=== PATIENT | female | born 1955 | race Asian ===

== ENCOUNTER → 2016-09-17 | Outpatient (CLI) | payer MEDICAID ==
[2016-09-17 10:30] LABS: ABSOLUTE BASOPHILS # (AUTO) 0.1 10^3/uL (0.0-0.2); ABSOLUTE EOSINOPHILS # (AUTO) 0.5 10^3/uL (0.0-0.6); ABSOLUTE NEUT (AUTO) 6.2 10^3/uL (1.7-8.2); BASOPHILS % (AUTO) 1.1 % (0-2); EOSINOPHILS % (AUTO) 5.4 % (0-6); HEMATOCRIT 34.7 % (36.0-47.0); HEMOGLOBIN 11.2 g/dL (12.0-15.5); HGB HCT DIFFERENCE -1.1; LYMPHOCYTES % (AUTO) 19.9 % (13-45); MEAN CORPUSCULAR HEMOGLOBIN 27.1 pg (27.0-33.4); MEAN CORPUSCULAR HGB CONC 32.3 g/dL (32.0-36.0); MEAN CORPUSCULAR VOLUME 84 fl (80-97); MONOCYTES % (AUTO) 10.4 % (3-13); RED BLOOD COUNT 4.14 10^6/uL (3.72-5.28); SEGMENTED NEUTROPHILS % (AUTO) 63.2 % (42-78); WHITE BLOOD COUNT 9.8 10^3/uL (4.0-10.5)
[2016-09-17 10:37] LABS: APPEARANCE,URINE CLEAR; BILIRUBIN,URINE NEGATIVE (NEGATIVE); GLUCOSE, URINE NEGATIVE (NEGATIVE); KETONES,URINE NEGATIVE (NEGATIVE); LEUKOCYTE ESTERASE,URINE NEGATIVE (NEGATIVE); NITRITE,URINE NEGATIVE (NEGATIVE); PROTEIN,URINE NEGATIVE (NEGATIVE); URINE SPECIFIC GRAVITY 1.016; UROBILINOGEN,URINE NEGATIVE mg/dL (<2.0)
[2016-09-17 11:02] LABS: ANION GAP 12 (5-19); BLOOD UREA NITROGEN 16 mg/dL (7-20); CALCIUM 9.5 mg/dL (8.4-10.2); CARBON DIOXIDE 26 mmol/L (22-30); CHLORIDE 103 mmol/L (98-107); CREATININE RESULT 0.77 mg/dL (0.52-1.25); GLUCOSE 102 mg/dL (75-110); SODIUM 141.2 mmol/L (137-145)
--- NOTE | 2016-09-18 09:21 | EKG REPORT ---
SEVERITY:- NORMAL ECG - SINUS RHYTHM : Confirmed by: Dre Justice MD 18-Sep-2016 09:19:59
== END ==
LOC: OD 09:25
PROVIDERS: ATTEND Orthopaedic Surgery
DX: Z01.810 Encounter for preprocedural cardiovascular examination (principal); Z01.811 Encounter for preprocedural respiratory examination; Z01.818 Encounter for other preprocedural examination; Z79.899 Other long term (current) drug therapy; M17.11 Unilateral primary osteoarthritis, right knee
CPT/HCPCS: 36415; 71020; 80048; 81001; 85025; 93005; 93010

== ENCOUNTER 2016-10-19 05:45 | Inpatient (IN) | payer MEDICAID ==
[2016-10-08 12:41] LABS: HEMATOCRIT 35.8 % (36.0-47.0); HEMOGLOBIN 11.7 g/dL (12.0-15.5); HGB HCT DIFFERENCE -0.7; MEAN CORPUSCULAR HEMOGLOBIN 27.3 pg (27.0-33.4); MEAN CORPUSCULAR HGB CONC 32.7 g/dL (32.0-36.0); MEAN CORPUSCULAR VOLUME 84 fl (80-97); RED BLOOD COUNT 4.29 10^6/uL (3.72-5.28); RED CELL DISTRIBUTION WIDTH 16.1 % (11.5-14.0); WHITE BLOOD COUNT 9.3 10^3/uL (4.0-10.5)
[2016-10-08 12:47] LABS: APPEARANCE,URINE CLEAR; BILIRUBIN,URINE NEGATIVE (NEGATIVE); GLUCOSE, URINE NEGATIVE (NEGATIVE); KETONES,URINE NEGATIVE (NEGATIVE); LEUKOCYTE ESTERASE,URINE NEGATIVE (NEGATIVE); NITRITE,URINE NEGATIVE (NEGATIVE); PROTEIN,URINE NEGATIVE (NEGATIVE); URINE SPECIFIC GRAVITY 1.004; UROBILINOGEN,URINE NEGATIVE mg/dL (<2.0)
[2016-10-08 13:06] LABS: ANION GAP 14 (5-19); BLOOD UREA NITROGEN 21 mg/dL (7-20); CALCIUM 10.2 mg/dL (8.4-10.2); CARBON DIOXIDE 30 mmol/L (22-30); CHLORIDE 101 mmol/L (98-107); CREATININE RESULT 0.88 mg/dL (0.52-1.25); GLUCOSE 84 mg/dL (75-110); POTASSIUM 4.4 mmol/L (3.6-5.0); SODIUM 144.6 mmol/L (137-145)
[~2016-10-19 05:45] MED LIST: BUPIVACAINE INJ/PF LIPOSOME/PF 266 MG/20 ML SDV IJ PRN; IBUPROFEN 800 MG in NORMAL SALINE 250 ML IV PRN; IBUPROFEN 800 MG/NS 250 ML IV PRN; LACTATED RINGERS 1000 ML IV PRN; LANSOPRAZOLE 15 MG TAB.RAP.DR PO PRN; LIDOCAINE 0.5% INJ-PF (5 MG/ML) 50 ML SDV SUBCUT PRN; OXYCODONE HCL SR 10 MG TABLET PO PRN; SCOPOLAMINE HYDROBROMIDE 1.5 MG PATCH.TD72 TD PRN; SCOPOLAMINE HYDROBROMIDE 1.5 MG PATCH.TD72 TOP PRN; VANCOMYCIN HCL 1,000 MG in DEXTROSE 5%-WATER 250 ML IV PRN
[2016-10-19] MEDS ORDERED: THROMBIN (BOVINE) 5000 UNIT EPITAXIS KIT ONE (06:48)
[2016-10-19] MEDS ORDERED: BUPIVACAINE INJ/PF LIPOSOME/PF 266 MG/20 ML SDV ONE (06:48)
[2016-10-19] MEDS ORDERED: THROMBIN (BOVINE) TOPICAL 20000 UNIT VIAL ONE (06:48)
[2016-10-19] MEDS ORDERED: CLINDAMYCIN 600 MG/D5W RTU 600 MG/50 ML RTUPB IV ONE (06:56)
[2016-10-19] MEDS ORDERED: KETAMINE HCL INJ 500 MG/10 ML VIAL ONE (08:03)
[2016-10-19] MEDS ORDERED: FENTANYL CITRATE INJ/PF 100 MCG/2 ML AMPUL ONE (08:03)
[2016-10-19] MEDS ORDERED: PROPOFOL INJ 200 MG/20 ML VIAL IV ONE (08:04)
[2016-10-19] MEDS ORDERED: MIDAZOLAM 2 MG/2 ML INJ ONE (08:04)
[2016-10-19] MEDS ORDERED: TRANEXAMIC ACID INJ/PF 1,000 MG/10 ML SDV IV ONE ×2 (08:04→12:30)
[2016-10-19] MEDS ORDERED: DEXMEDETOMIDINE INJ 80 MCG/20 ML VIAL IV ONE (08:04)
[2016-10-19] MEDS ORDERED: OXYCODONE-ACETAMINOPHEN 5-325 MG TABLET PO PRN ×2 (08:19)
[2016-10-19] MEDS ORDERED: FENTANYL CITRATE INJ/PF 100 MCG/2 ML AMPUL IV PRN ×3 (08:19)
[2016-10-19] MEDS ORDERED: PROMETHAZINE HCL INJ 25 MG/1 ML VIAL IV PRN ×2 (08:19)
[2016-10-19] MEDS ORDERED: MORPHINE SULFATE 10 MG/ML INJ IV PRN ×3 (08:19→10:29)
[2016-10-19] MEDS ORDERED: MEPERIDINE HCL/PF INJ 25 MG/1 ML DISP.SYRIN IV PRN (08:19)
[2016-10-19] MEDS ORDERED: DIPHENHYDRAMINE HCL 50 MG/ML VIAL IV PRN ×2 (08:19→10:29)
[2016-10-19] MEDS ORDERED: MORPHINE SULFATE 10 MG/ML INJ IM PRN (10:29)
[2016-10-19] MEDS ORDERED: ONDANSETRON HCL INJ/PF 4 MG/2 ML SDV IV PRN (10:29)
[2016-10-19] MEDS ORDERED: MAG HYDROX/AL HYDROX/SIMETH SUSP 30 ML UDCUP PO PRN (10:29)
[2016-10-19] MEDS ORDERED: RINGERS SOLUTION,LACTATED 1,000 ML IV PRN (10:29)
[2016-10-19] MEDS ORDERED: ZOLPIDEM TARTRATE 5 MG TABLET PO PRN (10:29)
[2016-10-19] MEDS ORDERED: (PENDING PHARMACY ID) (Albuterol Sulfate [Proair Respiclick] 2 PUFF) IH PRN (10:29)
--- NOTE | 2016-10-19 10:29 | Operative Report ---
Operative Report DATE OF SURGERY: 10/19/16 PREOPERATIVE DIAGNOSIS: Right knee arthritis OPERATION: Right knee arthroplasty SURGEON: JOHN ANNA ANESTHESIA: Spinal TISSUE REMOVED OR ALTERED: Tissue to pathology ESTIMATED BLOOD LOSS: 100 PROCEDURE: Implants used: Femur: Striker triathlon #4 CR femur Tibia:, 4 tibia Tibial liner:, 11 mm CS insert Patella:, 32 mm oval patella Procedure with the patient supine on the operating table the. Right the limb is prepped and draped in a sterile fashion. The limb was elevated for exsanguination and the tourniquet inflated to 280 torr. A standard midline median parapatellar approach the knee is taken. Access is gained to the femoral canal through the intercondylar notch. Intramedullary alignment instrumentation used to resect 10 mm of distal femur in 5 of valgus. Sizing guide indicated a size for femur. Appropriate cutting jig is then used to fashion anterior posterior and chamfer cuts. A trial reduction femurs performed and this is judged to be adequate. Attention was next turned to the tibia. Using an extra medullary alignment system two millimeters was resected off the lateral tibial plateau. This is sized to a size or tibia. A trial reduction was now performed with a 4 femur and a 4 tibia using a 11 millimeters spacer. It is full extension and central patellofemoral tracking. The articular surface the patella was next resected using an oscillating saw. All trial implants were removed. Polymethylmethacrylate is mixed and used to cement the above implants in place. On adequate curing the cement excess cement was removed the tourniquet was deflated. The final #11 mm insert is impacted tibial tray. The knee is then extended and this considerable bleeding the emanates from the posterior aspect of the knee. Once the knee is flexed. This apparently constricts the vessel and a throat no longer bleed's. Hence I think that the only option is to remove the 11 mm insert and gain access to any bleeding the posterior aspect of the knee which is was done. A second 11 mm insert is then used and impacted into the tibial tray. Because the first one was deformed and not reusable. Hemostasis obtained the wound is then closed in layers using interrupted Vicryl followed by asad. A sterile compressive dressing was applied and the patient returned to recovery room in satisfactory condition.
[2016-10-19] MEDS ORDERED: ALBUTEROL SULFATE HFA (90 MCG/PUFF) 200 PUFF/8.5 GM MDI IH PRN (11:13)
[2016-10-19] MEDS: MORPHINE SULFATE 10 MG/ML INJ IV PRN (12:23)
[2016-10-19] MEDS ORDERED: PHENYLEPHRINE HCL INJ/PF 10 MG/1 ML SDV ONE (12:25)
[2016-10-19] MEDS ORDERED: GLYCOPYRROLATE INJ 0.4 MG/2 ML VIAL ONE (12:25)
[2016-10-19] MEDS ORDERED: METOCLOPRAMIDE HCL INJ/PF 10 MG/2 ML SDV ONE (12:25)
[2016-10-19] MEDS: OXYCODONE HCL IR 5 MG TABLET PO PRN ×2 (16:15→22:27)
[2016-10-19] MEDS ORDERED: ACETAMINOPHEN 100 ML IV ONE (16:30)
[2016-10-19] MEDS: SENNOSIDES/DOCUSATE 8.6-50 MG 1 EACH TABLET PO SCH (17:23)
[2016-10-19] MEDS: CLOTRIMAZOLE 1% CREAM 15 GM TP SCH (17:24)
[2016-10-19] MEDS: IBUPROFEN 800 MG in NORMAL SALINE 250 ML IV SCH (17:31)
[2016-10-19] MEDS: OXYCODONE HCL SR 10 MG TABLET PO SCH (22:26)
[2016-10-19] MEDS: RIVAROXABAN 10 MG TABLET PO SCH (22:28)
[2016-10-19] MEDS ORDERED: VANCOMYCIN HCL 1,000 MG in DEXTROSE 5%-WATER 250 ML IV ONE (22:30)
[2016-10-20] MEDS: MORPHINE SULFATE 10 MG/ML INJ IV PRN (01:44)
[2016-10-20] MEDS: IBUPROFEN 800 MG in NORMAL SALINE 250 ML IV SCH ×3 (01:49→18:00)
[2016-10-20 05:52] LABS: HEMATOCRIT 28.3 % (36.0-47.0); HEMOGLOBIN 9.2 g/dL (12.0-15.5); HGB HCT DIFFERENCE -0.7; MEAN CORPUSCULAR HEMOGLOBIN 26.6 pg (27.0-33.4); MEAN CORPUSCULAR HGB CONC 32.5 g/dL (32.0-36.0); MEAN CORPUSCULAR VOLUME 82 fl (80-97); RED BLOOD COUNT 3.46 10^6/uL (3.72-5.28); RED CELL DISTRIBUTION WIDTH 16.1 % (11.5-14.0)
[2016-10-20 06:10] LABS: ANION GAP 10 (5-19); BLOOD UREA NITROGEN 17 mg/dL (7-20); CALCIUM 9.2 mg/dL (8.4-10.2); CARBON DIOXIDE 27 mmol/L (22-30); CHLORIDE 101 mmol/L (98-107); CREATININE RESULT 0.89 mg/dL (0.52-1.25); GLUCOSE 120 mg/dL (75-110); POTASSIUM 4.1 mmol/L (3.6-5.0); SODIUM 138.1 mmol/L (137-145)
[2016-10-20] MEDS: LANSOPRAZOLE 30 MG TAB.RAP.DR PO SCH (06:39)
[2016-10-20] MEDS: OXYCODONE HCL IR 5 MG TABLET PO PRN ×3 (08:42→22:00)
[2016-10-20] MEDS: OXYCODONE HCL SR 10 MG TABLET PO SCH ×2 (09:27→22:00)
[2016-10-20] MEDS: SENNOSIDES/DOCUSATE 8.6-50 MG 1 EACH TABLET PO SCH ×2 (09:29→18:00)
[2016-10-20] MEDS: FOLIC ACID 1 MG TABLET PO SCH (09:29)
[2016-10-20] MEDS: LORATADINE 10 MG TABLET PO SCH (09:29)
[2016-10-20] MEDS: PRENATAL VITAMIN W-O CA NO5/FE FUMARATE/FA CAPSULE PO SCH (09:29)
[2016-10-20] MEDS: CLOTRIMAZOLE 1% CREAM 15 GM TP SCH ×2 (09:30→18:00)
[2016-10-20] MEDS: FLUTICASONE NASAL SPRAY 50 MCG/SPRY 120 SPRAY/16 GM NASL PRN (09:30)
[2016-10-20] MEDS ORDERED: (PENDING PHARMACY ID) (Loratadine [Claritin] 10 MG) PO SCH (10:00)
[2016-10-20] MEDS: RIVAROXABAN 10 MG TABLET PO SCH (21:59)
[2016-10-21] MEDS: IBUPROFEN 800 MG in NORMAL SALINE 250 ML IV SCH ×2
[2016-10-21] MEDS: OXYCODONE HCL IR 5 MG TABLET PO PRN ×2 (04:06→12:00)
[2016-10-21] MEDS: LANSOPRAZOLE 30 MG TAB.RAP.DR PO SCH (05:13)
[2016-10-21 06:45] LABS: HEMOGLOBIN 9.1 g/dL (12.0-15.5); HGB HCT DIFFERENCE -0.7; MEAN CORPUSCULAR HEMOGLOBIN 26.9 pg (27.0-33.4); MEAN CORPUSCULAR HGB CONC 32.6 g/dL (32.0-36.0); MEAN CORPUSCULAR VOLUME 83 fl (80-97); RED BLOOD COUNT 3.38 10^6/uL (3.72-5.28); WHITE BLOOD COUNT 11.7 10^3/uL (4.0-10.5)
--- NOTE | 2016-10-21 07:24 | PDOC PROGRESS REPORT ---
Subjective Progress Note for:: 10/21/16 Subjective:: Patient resting comfortably Physical Exam Vital Signs: Temp Pulse Resp BP Pulse Ox 36.9 C 87 16 96/52 L 97 10/21/16 00:12 10/21/16 00:12 10/21/16 00:12 10/21/16 00:12 10/21/16 00:12 Intake & Output 10/20/16 10/21/16 10/22/16 06:59 06:59 06:59 Intake Total 4683 1431 Output Total 6605 2900 Balance 2707 -1469 General appearance: PRESENT: no acute distress Head exam: PRESENT: normocephalic Respiratory exam: PRESENT: unlabored Cardiovascular exam: PRESENT: RRR Pulses: PRESENT: +1 pedal pulses bilateral Vascular exam: PRESENT: normal capillary refill GI/Abdominal exam: PRESENT: soft Rectal exam: PRESENT: deferred Extremities exam: PRESENT: other - Right knee dressing clean dry and intact. Distal neurovascular examinations intact. Results Laboratory Results: 10/21/16 05:42 10/20/16 05:25 10/21/16 05:42 WBC 11.7 H RBC 3.38 L Hgb 9.1 L Hct 28.0 L MCV 83 MCH 26.9 L MCHC 32.6 RDW 16.0 H Plt Count 417 Impressions: Knee X-Ray 10/19/16 10:31 IMPRESSION: SATISFACTORY POSTOPERATIVE RIGHT KNEE. Status: Imported from PACS Assessment & Plan - Diagnosis (1) Arthropathy of right knee Is this a current diagnosis for this admission?: YesPlan: Patient postop day #2 from right knee arthroplasty. Dressing remains clean dry and intact. Minimal progress with physical therapy. To a fpc facility if not returning to an [facility] - Time Time Spent with patient: 15-24 minutes Anticipated discharge: SNF Within: within 24 hours
[2016-10-21] MEDS: LORATADINE 10 MG TABLET PO SCH (09:28)
[2016-10-21] MEDS: PRENATAL VITAMIN W-O CA NO5/FE FUMARATE/FA CAPSULE PO SCH (09:28)
[2016-10-21] MEDS: FOLIC ACID 1 MG TABLET PO SCH (09:29)
[2016-10-21] MEDS: OXYCODONE HCL SR 10 MG TABLET PO SCH (09:31)
[2016-10-21] MEDS: CLOTRIMAZOLE 1% CREAM 15 GM TP SCH ×2 (09:33→18:14)
[2016-10-21] MEDS: SENNOSIDES/DOCUSATE 8.6-50 MG 1 EACH TABLET PO SCH ×2 (09:38→18:13)
[2016-10-21] MEDS ORDERED: IBUPROFEN 600 MG TABLET PO ONE (16:30)
[2016-10-21] MEDS: IBUPROFEN 600 MG TABLET PO SCH (23:00)
[2016-10-21] MEDS: RIVAROXABAN 10 MG TABLET PO SCH (23:00)
[2016-10-22] MEDS: OXYCODONE HCL IR 5 MG TABLET PO PRN ×3 (02:36→17:46)
[2016-10-22] MEDS: IBUPROFEN 600 MG TABLET PO SCH ×3 (06:31→22:20)
[2016-10-22] MEDS: LANSOPRAZOLE 30 MG TAB.RAP.DR PO SCH (06:31)
[2016-10-22 06:35] LABS: HEMATOCRIT 28.6 % (36.0-47.0); HGB HCT DIFFERENCE -1.6; MEAN CORPUSCULAR HEMOGLOBIN 26.2 pg (27.0-33.4); MEAN CORPUSCULAR HGB CONC 31.4 g/dL (32.0-36.0); MEAN CORPUSCULAR VOLUME 83 fl (80-97); RED BLOOD COUNT 3.43 10^6/uL (3.72-5.28); RED CELL DISTRIBUTION WIDTH 16.4 % (11.5-14.0); WHITE BLOOD COUNT 10.6 10^3/uL (4.0-10.5)
--- NOTE | 2016-10-22 07:11 | PDOC TRANSFER SUMMARY ---
General - Admit/Disc Date/PCP Admission Date/Primary Care Provider: 10/19/16 05:45 HAYDEE MONTEIRO MD Discharge Date: 10/22/16 - Discharge Diagnosis (1) Arthropathy of right knee Is this a current diagnosis for this admission?: Yes - Additional Information Resuscitation Status: Full Code Home Medications: Albuterol Sulfate [Proair Respiclick] 2 puff IH Q4 PRN 10/05/16 Clotrimazole 1 applic TP BID 10/05/16 Fluticasone Propionate [Flonase Nasal [place] 50 Mcg/[place] 16 gm] 2 sprays NASL DAILY PRN 10/05/16 Folic Acid 1 mg PO DAILY 10/05/16 Hydrocodone Bit/Acetaminophen [Hydrocodon-Acetaminophen 5-325] 1 each PO Q6 PRN 10/05/16 Loratadine [Claritin] 10 mg PO DAILY 10/05/16 History of Present Illness Admission Date/PCP: 10/19/16 05:45 HAYDEE MONTEIRO MD History of Present Illness: LEONIE DENNY is a 60 year old femalewho presents with progressive right knee pain and dysfunction secondary to inflammatory arthropathy. she is admitted for elective right knee arthroplasty. Hospital Course Hospital Course: the patient was admitted to the operating room where she undergoes an uncomplicated right knee arthroplasty. she did return to work form satisfactory condition. she makes limited progress with physical therapy with complaints of pain upon weightbearing. because of her slow progress with physical therapy and decision is made that she probably do better in a postoperative rehabilitation setting Physical Exam Vital Signs: Temp Pulse Resp BP Pulse Ox 36.4 C 83 20 96/72 L 99 10/21/16 23:45 10/21/16 23:45 10/21/16 23:45 10/21/16 23:45 10/21/16 23:45 Intake & Output 10/21/16 10/22/16 10/23/16 06:59 06:59 06:59 Intake Total 1431 870 Output Total 2900 1100 Balance -1469 -230 General appearance: PRESENT: no acute distress Head exam: PRESENT: normocephalic Eye exam: PRESENT: EOMI Respiratory exam: PRESENT: unlabored Pulses: PRESENT: +1 pedal pulses bilateral GI/Abdominal exam: PRESENT: soft Rectal exam: PRESENT: deferred Extremities exam: PRESENT: pedal edema Musculoskeletal exam: PRESENT: other - right lower extremity dressing is intact. there is minimal drainage. there is mild pedal edema. distal neurovascular examination is intact. Neurological exam: PRESENT: alert, awake, oriented to person, oriented to place , oriented to time, oriented to situation. ABSENT: motor sensory deficit Psychiatric exam: PRESENT: appropriate affect, normal mood. ABSENT: homicidal ideation, suicidal ideation Skin exam: PRESENT: dry, intact, warm. ABSENT: cyanosis, rash Results Laboratory Results: 10/22/16 05:39 10/20/16 05:25 10/22/16 05:39 WBC 10.6 H RBC 3.43 L Hgb 9.0 L Hct 28.6 L MCV 83 MCH 26.2 L MCHC 31.4 L RDW 16.4 H Plt Count 470 H Impressions: Knee X-Ray 10/19/16 10:31 IMPRESSION: SATISFACTORY POSTOPERATIVE RIGHT KNEE. Status: Imported from PACS Transfer Plan - Disposition Transfer Plan: patient to be transferred to a residential facility for aggressive physical therapy focusing on range of motion of the right knee as well as weightbearing as tolerated ambulation. talisha dressing can be changed on postop day 7 and replaced with an opsite Plan Discharge Plan: patient will follow-up with dr. randolph in the [facility] for surgery approximately 2 weeks for staple removal.
[2016-10-22] MEDS: PRENATAL VITAMIN W-O CA NO5/FE FUMARATE/FA CAPSULE PO SCH (11:22)
[2016-10-22] MEDS: FOLIC ACID 1 MG TABLET PO SCH (11:22)
[2016-10-22] MEDS: SENNOSIDES/DOCUSATE 8.6-50 MG 1 EACH TABLET PO SCH ×2 (11:22→17:47)
[2016-10-22] MEDS: LORATADINE 10 MG TABLET PO SCH (11:22)
[2016-10-22] MEDS: ACETAMINOPHEN 325 MG TABLET PO PRN (11:23)
[2016-10-22] MEDS: CLOTRIMAZOLE 1% CREAM 15 GM TP SCH ×2 (11:24→17:47)
[2016-10-22] MEDS: RIVAROXABAN 10 MG TABLET PO SCH (22:19)
[2016-10-23] MEDS: OXYCODONE HCL IR 5 MG TABLET PO PRN (04:46)
[2016-10-23] MEDS: IBUPROFEN 600 MG TABLET PO SCH ×3 (06:34→23:26)
[2016-10-23] MEDS: LANSOPRAZOLE 30 MG TAB.RAP.DR PO SCH (06:35)
--- NOTE | 2016-10-23 06:55 | PDOC PROGRESS REPORT ---
Subjective Progress Note for:: 10/23/16 Subjective:: Patient reports improvement in her pain. This morning, but she continues to refuse to participate with physical therapy Physical Exam Vital Signs: Temp Pulse Resp BP Pulse Ox 36.9 C 88 16 98/44 L 98 10/22/16 23:37 10/22/16 23:37 10/22/16 23:37 10/22/16 23:37 10/22/16 23:37 Intake & Output 10/21/16 10/22/16 10/23/16 06:59 06:59 06:59 Intake Total 1431 870 840 Output Total 2900 1100 1450 Balance -1469 -230 -610 General appearance: PRESENT: no acute distress Head exam: PRESENT: normocephalic Respiratory exam: PRESENT: unlabored Cardiovascular exam: PRESENT: RRR Pulses: PRESENT: +1 pedal pulses bilateral Vascular exam: PRESENT: normal capillary refill GI/Abdominal exam: PRESENT: soft Rectal exam: PRESENT: deferred Extremities exam: PRESENT: other - Right knee talisha dressing is clean dry and intact. This minimal tenderness to palpation. Range of motion is resisted by the patient. Distal neurovascular examinations intact. Skin exam: PRESENT: dry, intact, warm. ABSENT: cyanosis, rash Results Laboratory Results: 10/22/16 05:39 10/20/16 05:25 Impressions: Knee X-Ray 10/19/16 10:31 IMPRESSION: SATISFACTORY POSTOPERATIVE RIGHT KNEE. Status: Imported from PACS Assessment & Plan - Diagnosis (1) Arthropathy of right knee Is this a current diagnosis for this admission?: YesPlan: 60-year-old white female postop day 4 from right knee arthroplasty. At this point the patient is really not making any significant progress with physical therapy and in fact refused to participate with physical therapy yesterday. I think the best disposition to the fascial be a intermediate facility. Efforts are underway to place her. In the interim we'll continue to offer physical therapy and attempt to mobilize the patient. - Time Time Spent with patient: Less than 15 minutes
[2016-10-23] MEDS: SENNOSIDES/DOCUSATE 8.6-50 MG 1 EACH TABLET PO SCH ×2 (09:03→17:45)
[2016-10-23] MEDS: CLOTRIMAZOLE 1% CREAM 15 GM TP SCH ×2 (09:03→17:45)
[2016-10-23] MEDS: LORATADINE 10 MG TABLET PO SCH (09:03)
[2016-10-23] MEDS: FOLIC ACID 1 MG TABLET PO SCH (09:03)
[2016-10-23] MEDS: PRENATAL VITAMIN W-O CA NO5/FE FUMARATE/FA CAPSULE PO SCH (09:03)
[2016-10-23] MEDS: ACETAMINOPHEN 325 MG TABLET PO PRN (09:05)
[2016-10-23] MEDS: FLUTICASONE NASAL SPRAY 50 MCG/SPRY 120 SPRAY/16 GM NASL PRN (09:06)
[2016-10-23] MEDS: BENZOCAINE/MENTHOL SORE THROAT LOZENGE BUCCAL PRN ×2 (15:11→23:57)
[2016-10-23] MEDS: RIVAROXABAN 10 MG TABLET PO SCH (23:25)
[2016-10-24] MEDS ORDERED: ALBUTEROL SULFATE HFA (90 MCG/PUFF) 200 PUFF/8.5 GM MDI IH ONE (04:08)
[2016-10-24] MEDS: IBUPROFEN 600 MG TABLET PO SCH ×3 (06:41→22:15)
[2016-10-24] MEDS: LANSOPRAZOLE 30 MG TAB.RAP.DR PO SCH (06:42)
[2016-10-24] MEDS: ONDANSETRON 4 MG TAB.RAPDIS PO PRN ×2 (06:49→15:11)
[2016-10-24] MEDS: BENZOCAINE/MENTHOL SORE THROAT LOZENGE BUCCAL PRN (06:49)
[2016-10-24] MEDS: FOLIC ACID 1 MG TABLET PO SCH (10:38)
[2016-10-24] MEDS: SENNOSIDES/DOCUSATE 8.6-50 MG 1 EACH TABLET PO SCH ×2 (10:38→19:51)
[2016-10-24] MEDS: CLOTRIMAZOLE 1% CREAM 15 GM TP SCH ×2 (10:38→19:50)
[2016-10-24] MEDS: LORATADINE 10 MG TABLET PO SCH (10:38)
[2016-10-24] MEDS: PRENATAL VITAMIN W-O CA NO5/FE FUMARATE/FA CAPSULE PO SCH (10:38)
[2016-10-24] MEDS: OXYCODONE HCL IR 5 MG TABLET PO PRN (14:15)
[2016-10-24] MEDS: FLUTICASONE NASAL SPRAY 50 MCG/SPRY 120 SPRAY/16 GM NASL PRN (15:11)
[2016-10-24] MEDS: RIVAROXABAN 10 MG TABLET PO SCH (22:12)
[2016-10-25] MEDS: LANSOPRAZOLE 30 MG TAB.RAP.DR PO SCH (06:41)
[2016-10-25] MEDS: IBUPROFEN 600 MG TABLET PO SCH ×3 (06:41→22:04)
[2016-10-25] MEDS: SENNOSIDES/DOCUSATE 8.6-50 MG 1 EACH TABLET PO SCH ×2 (09:59→22:04)
[2016-10-25] MEDS: CLOTRIMAZOLE 1% CREAM 15 GM TP SCH ×2 (10:00→22:09)
[2016-10-25] MEDS: FOLIC ACID 1 MG TABLET PO SCH (10:00)
[2016-10-25] MEDS: LORATADINE 10 MG TABLET PO SCH (10:00)
[2016-10-25] MEDS: PRENATAL VITAMIN W-O CA NO5/FE FUMARATE/FA CAPSULE PO SCH (10:00)
[2016-10-25] MEDS: RIVAROXABAN 10 MG TABLET PO SCH (22:05)
[2016-10-25] MEDS: OXYCODONE HCL IR 5 MG TABLET PO PRN (22:11)
[2016-10-26] MEDS: LANSOPRAZOLE 30 MG TAB.RAP.DR PO SCH (05:30)
[2016-10-26] MEDS: IBUPROFEN 600 MG TABLET PO SCH ×3 (05:30→21:48)
[2016-10-26] MEDS: OXYCODONE HCL IR 5 MG TABLET PO PRN (05:31)
[2016-10-26] MEDS: CLOTRIMAZOLE 1% CREAM 15 GM TP SCH (10:31)
[2016-10-26] MEDS: SENNOSIDES/DOCUSATE 8.6-50 MG 1 EACH TABLET PO SCH ×2 (10:31→17:21)
[2016-10-26] MEDS: PRENATAL VITAMIN W-O CA NO5/FE FUMARATE/FA CAPSULE PO SCH (10:31)
[2016-10-26] MEDS: LORATADINE 10 MG TABLET PO SCH (10:31)
[2016-10-26] MEDS: FOLIC ACID 1 MG TABLET PO SCH (10:31)
[2016-10-26] MEDS: ACETAMINOPHEN 325 MG TABLET PO PRN (17:22)
[2016-10-26] MEDS: RIVAROXABAN 10 MG TABLET PO SCH (21:48)
[2016-10-27] MEDS: ACETAMINOPHEN 325 MG TABLET PO PRN ×3 (05:43→18:59)
[2016-10-27] MEDS: IBUPROFEN 600 MG TABLET PO SCH ×3 (05:43→21:19)
[2016-10-27] MEDS: LANSOPRAZOLE 30 MG TAB.RAP.DR PO SCH (05:43)
--- NOTE | 2016-10-27 06:46 | PDOC PROGRESS REPORT ---
Subjective Progress Note for:: 10/27/16 Subjective:: Patient with improving function and decreasing pain Physical Exam Vital Signs: Temp Pulse Resp BP Pulse Ox 36.7 C 79 17 124/56 L 100 10/26/16 23:26 10/26/16 23:26 10/26/16 23:26 10/26/16 23:26 10/26/16 23:26 Intake & Output 10/25/16 10/26/16 10/27/16 06:59 06:59 06:59 Intake Total 1440 1950 1930 Output Total 2100 2425 1000 Balance -660 -475 930 Weight 88.2 kg 87.8 kg 88 kg General appearance: PRESENT: no acute distress Head exam: PRESENT: normocephalic Eye exam: PRESENT: EOMI Respiratory exam: PRESENT: unlabored Cardiovascular exam: PRESENT: RRR Pulses: PRESENT: +1 pedal pulses bilateral GI/Abdominal exam: PRESENT: soft Rectal exam: PRESENT: deferred Extremities exam: PRESENT: other - Right lower extremity talisha dressing removed. Wound is clean dry and intact. An Acticoat dressing is applied. Before I leave the floor. The patient has removed the Acticoat dressing Psychiatric exam: PRESENT: appropriate affect, normal mood. ABSENT: homicidal ideation, suicidal ideation Skin exam: PRESENT: dry, intact, warm. ABSENT: cyanosis, rash Results Laboratory Results: 10/22/16 05:39 10/20/16 05:25 Impressions: Knee X-Ray 10/19/16 10:31 IMPRESSION: SATISFACTORY POSTOPERATIVE RIGHT KNEE. Status: Imported from PACS Assessment & Plan - Diagnosis (1) Arthropathy of right knee Is this a current diagnosis for this admission?: YesPlan: 60-year-old white female postop day #8 from her right knee arthroplasty. Patient has started to make progress with physical therapy and ambulated 50 feet yesterday. Were [facility]. - Time Time Spent with patient: 15-24 minutes Anticipated discharge: SNF Within: when bed available
[2016-10-27] MEDS: FOLIC ACID 1 MG TABLET PO SCH (09:24)
[2016-10-27] MEDS: LORATADINE 10 MG TABLET PO SCH (09:24)
[2016-10-27] MEDS: SENNOSIDES/DOCUSATE 8.6-50 MG 1 EACH TABLET PO SCH ×2 (09:25→17:06)
[2016-10-27] MEDS: FLUTICASONE NASAL SPRAY 50 MCG/SPRY 120 SPRAY/16 GM NASL PRN (09:25)
[2016-10-27] MEDS: PRENATAL VITAMIN W-O CA NO5/FE FUMARATE/FA CAPSULE PO SCH (09:25)
[2016-10-27] MEDS: RIVAROXABAN 10 MG TABLET PO SCH (21:19)
[2016-10-28] MEDS: ACETAMINOPHEN 325 MG TABLET PO PRN ×2 (02:37→17:50)
[2016-10-28] MEDS: IBUPROFEN 600 MG TABLET PO SCH ×3 (05:11→22:05)
[2016-10-28] MEDS: LANSOPRAZOLE 30 MG TAB.RAP.DR PO SCH (05:12)
--- NOTE | 2016-10-28 07:29 | PDOC DISCHARGE SUMMARY ---
General - Admit/Disc Date/PCP Admission Date/Primary Care Provider: 10/19/16 05:45 HAYDEE MONTEIRO MD Discharge Date: 10/28/16 - Discharge Diagnosis (1) Arthropathy of right knee Is this a current diagnosis for this admission?: YesSummary: Patient presents with progressive right knee pain and functional disability secondary to arthropathy. - Additional Information Resuscitation Status: Full Code Discharge Diet: As Tolerated, Regular Discharge Activity: Balance Activity w/Rest, No Driving, No tub bath Home Medications: Adalimumab [Humira] 40 mg SQ ASDIR PRN 10/23/16 Folic Acid [Folvite 1 mg Tablet] 5 mg PO DAILY 10/23/16 Loratadine [Claritin 10 mg Tablet] 10 mg PO DAILY 10/23/16 Oxycodone HCl/Acetaminophen [Percocet 5-325 mg Tablet] 1 tab PO Q6HP PRN History of Present Illness History of Present Illness: 60-year-old female progressive right knee pain and functional disability Hospital Course Hospital Course: Patient is admitted through the operating room where she undergoes an uncomplicated right knee arthroplasty. Postoperative rehabilitation is limited by patient cooperation as well as by pain control. Plan was to discharge to snf facility. Arrangements have not been adequately addressed at this point in the patient is made enough progress with physical therapy that she can return to the [facility] with in-house nursing and physical therapy. Physical Exam Vital Signs: Temp Pulse Resp BP Pulse Ox 36.4 C 81 19 130/70 H 98 10/27/16 23:20 10/27/16 23:20 10/27/16 23:20 10/27/16 23:20 10/27/16 23:20 Intake & Output 10/27/16 10/28/16 10/29/16 06:59 06:59 06:59 Intake Total 1930 1780 Output Total 1000 500 Balance 930 1280 Weight 88 kg 86.5 kg General appearance: PRESENT: no acute distress Head exam: PRESENT: normocephalic Respiratory exam: PRESENT: unlabored Cardiovascular exam: PRESENT: RRR Pulses: PRESENT: +1 pedal pulses bilateral Vascular exam: PRESENT: normal capillary refill GI/Abdominal exam: PRESENT: soft Rectal exam: PRESENT: deferred Musculoskeletal exam: PRESENT: other - Right knee dressing clean dry and intact Neurological exam: PRESENT: alert, awake, oriented to person, oriented to place , oriented to time, oriented to situation. ABSENT: motor sensory deficit Psychiatric exam: PRESENT: appropriate affect, normal mood. ABSENT: homicidal ideation, suicidal ideation Skin exam: PRESENT: dry, intact, warm. ABSENT: cyanosis, rash Results Laboratory Results: 10/22/16 05:39 10/20/16 05:25 Impressions: Knee X-Ray 10/19/16 10:31 IMPRESSION: SATISFACTORY POSTOPERATIVE RIGHT KNEE. Status: Imported from PACS Plan Discharge Plan: Patient be discharged the [facility]. She'll be serviced with physical therapy and snf. She can return to [facility] the [facility] for surgery in 1 week for staple removal.
[2016-10-28] MEDS: ONDANSETRON 4 MG TAB.RAPDIS PO PRN ×2 (09:39→19:32)
[2016-10-28] MEDS: LORATADINE 10 MG TABLET PO SCH (09:42)
[2016-10-28] MEDS: FOLIC ACID 1 MG TABLET PO SCH (09:42)
[2016-10-28] MEDS: SENNOSIDES/DOCUSATE 8.6-50 MG 1 EACH TABLET PO SCH ×2 (09:43→17:49)
[2016-10-28] MEDS: PRENATAL VITAMIN W-O CA NO5/FE FUMARATE/FA CAPSULE PO SCH (09:43)
[2016-10-28] MEDS: RIVAROXABAN 10 MG TABLET PO SCH (22:05)
[2016-10-29] MEDS: ONDANSETRON 4 MG TAB.RAPDIS PO PRN (00:48)
[2016-10-29] MEDS: IBUPROFEN 600 MG TABLET PO SCH (06:05)
[2016-10-29] MEDS: LANSOPRAZOLE 30 MG TAB.RAP.DR PO SCH (06:06)
[2016-10-29] MEDS: BENZOCAINE/MENTHOL SORE THROAT LOZENGE BUCCAL PRN (06:06)
--- NOTE | 2016-10-29 06:56 | PDOC PROGRESS REPORT ---
Subjective Progress Note for:: 10/29/16 Subjective:: No new complaints Physical Exam Vital Signs: Temp Pulse Resp BP Pulse Ox 36.4 C 86 20 134/70 H 99 10/29/16 00:55 10/29/16 00:55 10/29/16 00:55 10/29/16 00:55 10/29/16 00:55 Intake & Output 10/27/16 10/28/16 10/29/16 06:59 06:59 06:59 Intake Total 1930 1780 1460 Output Total 1000 500 Balance 930 1280 1460 Weight 88 kg 86.5 kg Physical Exam: Unchanged from previous Results Laboratory Results: 10/22/16 05:39 10/20/16 05:25 Impressions: Knee X-Ray 10/19/16 10:31 IMPRESSION: SATISFACTORY POSTOPERATIVE RIGHT KNEE. Assessment & Plan - Diagnosis (1) Arthropathy of right knee Is this a current diagnosis for this admission?: YesPlan: Awaiting placement - Time Time Spent with patient: 15-24 minutes Anticipated discharge: Other Within: Other
[2016-10-29 07:48] VITALS: BP 106/47
[2016-10-29] MEDS: ACETAMINOPHEN 325 MG TABLET PO PRN (10:17)
[2016-10-29] MEDS: PRENATAL VITAMIN W-O CA NO5/FE FUMARATE/FA CAPSULE PO SCH (10:18)
[2016-10-29] MEDS: FOLIC ACID 1 MG TABLET PO SCH (10:18)
[2016-10-29] MEDS: LORATADINE 10 MG TABLET PO SCH (10:18)
[2016-10-29] MEDS: SENNOSIDES/DOCUSATE 8.6-50 MG 1 EACH TABLET PO SCH (10:18)
== END 2016-10-29 11:01 | disposition home health service (06) | DRG 470 ==
LOC: INOR 05:45 → 4S 12:04
PROVIDERS: ADMIT Orthopaedic Surgery; ATTEND Orthopaedic Surgery
PROC: 0SRC0J9 Replacement of Right Knee Joint with Synthetic Substitute, Cemented, Open Approach (ICD-10-PCS; principal; 2016-10-19 08:45)
DX: M17.11 Unilateral primary osteoarthritis, right knee (principal); D64.9 Anemia, unspecified; M06.9 Rheumatoid arthritis, unspecified; F17.210 Nicotine dependence, cigarettes, uncomplicated; Z96.652 Presence of left artificial knee joint; Z79.899 Other long term (current) drug therapy; Z88.0 Allergy status to penicillin; Z82.49 Family history of ischemic heart disease and other diseases of the circulatory system; Z80.42 Family history of malignant neoplasm of prostate
CPT/HCPCS: 01402; 36415; 80048; 81001; 85027; 88304; 88311; 94799; C9290; J0131; J1741; J2250; J2270; J2370; J2704; J2765; J3010; J3370; J3490; J7050; J7060; S0119

== ENCOUNTER 2016-11-22 09:57 | Emergency (ER) | payer MEDICAID ==
[2016-11-22] MEDS ORDERED: CLINDAMYCIN 600 MG/D5W RTU 50 ML IV ONE (10:38)
[2016-11-22] MEDS ORDERED: LIDOCAINE 1% INJ-PF (10 MG/ML) 30 ML SDV INJ ONE (10:40)
[2016-11-22] MEDS ORDERED: CLINDAMYCIN 300 MG/D5W RTU 50 ML IV ONE (12:31)
[2016-11-22] MEDS ORDERED: MORPHINE SULFATE 10 MG/ML INJ IV ONE (12:32)
[2016-11-22] MEDS ORDERED: ONDANSETRON HCL INJ/PF 4 MG/2 ML SDV IV ONE (12:32)
[2016-11-22] MEDS ORDERED: CLINDAMYCIN HCL 150 MG CAPSULE PO ONE (15:50)
--- NOTE | 2016-11-22 15:55 | ER Document Report ---
ED Skin Rash/Insect Bite/Abscs - General Chief Complaint: Abscess Stated Complaint: JAW SWELLING Notes: Patient is had swelling of her left lower face and jaw region for about 3 days. It's worse today. She said that it started as a "sit" on the outside of her face which she tried to pop over the past week or more, but without success and it's now getting worse. Yesterday, she felt a pop inside her mouth and there was some blood and other fluids and her mouth. Then, it was like watery release in her mouth. She is not aware of any fever. TRAVEL OUTSIDE OF THE [place] IN LAST 30 DAYS: No - Related Data Allergies/Adverse Reactions: aspirin [Aspirin] Allergy (Severe, Verified 10/20/14 09:15) Anaphylaxis celecoxib [From Celebrex] Allergy (Severe, Verified 10/20/14 09:15) Anaphylaxis Penicillins Allergy (Verified 10/12/16 16:58) Rash, Itching lorazepam [From Ativan] Adverse Reaction (Intermediate, Verified 10/12/14 21:28) Respiratory distress tiotropium bromide [From Spiriva with HandiHaler] Adverse Reaction (Verified 15:11) Migraine, Chest Pain Past Medical History - Social History Smoking Status: Former Smoker Chew tobacco use (# tins/day): No Frequency of alcohol use: None Drug Abuse: None Family History: Arthritis, CAD, CVA, Hyperlipidemia, Hypertension, Malignancy - Past Medical History Cardiac Medical History: Reports: Hx Hypercholesterolemia - hx, not a problem now-per pt, Hx Hypertension Pulmonary Medical History: Reports: Hx Asthma - Inhaler-rarely uses, Hx Bronchitis, Hx COPD, Hx Pneumonia, Hx Respiratory Failure - secondary to aspiration pneumonia Denies: Hx Sleep Apnea, Hx Tuberculosis - PPD +, has taken prophylactic med/ CXR clear Neurological Medical History: GI Medical History: Reports: Hx Gastroesophageal Reflux Disease - not a current problem Musculoskeltal Medical History: Reports Hx Arthritis, Denies Hx Fibromyalgia, Denies Hx Muscular Dystrophy, Reports Hx Musculoskeletal Deformity Skin Medical History: Reports Hx Psoriasis Psychiatric Medical History: Reports: Hx Depression Past Surgical History: Reports: Hx Orthopedic Surgery - both knees - Immunizations Hx Diphtheria, Pertussis, Tetanus Vaccination: Yes Hx Pneumococcal Vaccination: 12/17/14 Review of Systems - Review of Systems Notes: REVIEW OF SYSTEMS: CONSTITUTIONAL : Denies fever. EENT: Denies eye, ear, nose or mouth or throat pain or other symptoms. CARDIOVASCULAR: Denies chest pain. RESPIRATORY: Denies cough, chest congestion, or shortness of breath. GASTROINTESTINAL: Denies abdominal pain or nausea, vomiting, or diarrhea. GENITOURINARY: Denies difficulty or painful urinating, urinary frequency, blood in urine. MUSCULOSKELETAL: Denies back or neck pain. Denies joint pain or swelling. SKIN: See history of present illness. Patient says that she has psoriasis, especially in her scalp. Additionally, patient has been using an exfoliative agent on her face and has some raw areas in the right maxillary region and in the right cheek for the past week or more. During my evaluation of the patient , she is continually picking at these areas of her face and she has notably dirty fingernails. NEUROLOGICAL: Denies LOC or altered mental status. Denies headache. Denies sensory loss or motor deficits. ALL OTHER SYSTEMS REVIEWED AND NEGATIVE. Physical Exam - Vital signs Vitals: Temp Pulse Resp BP Pulse Ox 98.0 F 94 20 146/74 H 95 11/22/16 10:02 11/22/16 10:02 11/22/16 10:02 11/22/16 10:02 11/22/16 10:02 Interpretation: Normal. No: Febrile - Notes Notes: PHYSICAL EXAMINATION: GENERAL: Well-appearing, in no acute distress. Vital signs are normal. HEAD: Atraumatic, normocephalic. EYES: Pupils equal round and reactive to light, extraocular movements intact. ENT: oropharynx clear without exudates. Moist mucous membranes. Patient has swollen left lower cheek region which when palpated from the inside and out feels like a round solid mass which could either be cellulitis or a combination cellulitis and abscess. No true fluctuance noted. NECK: Normal range of motion, supple. LUNGS: Breath sounds clear and equal bilaterally. HEART: Regular rate and rhythm without murmurs. ABDOMEN: Soft, nontender. No guarding or rebound. BACK: No tenderness throughout entire back. EXTREMITIES: Normal range of motion without pain. Bilateral TKR. NEUROLOGICAL: Normal speech, normal gait. Normal sensory, motor, and reflex exams. Awake, alert, and oriented x3. Cranial nerves normal. PSYCH: Normal mood, normal affect. SKIN: Warm, dry, no rashes. Course - Re-evaluation Re-evalutation: 11/22/16 20:47 Attempted needle aspiration of the swollen area of the left lower cheek area I cleansed the area with Betadine and then injected a small amount of Xylocaine subcutaneously. Then, inserted an 18-gauge needle into 2 areas which I thought were the most promising for finding fluid. Neither of these 2 sticks were successful. I then asked Dr. Montes to look with the ultrasound to see if we could find a collection of fluid in this area. We were only able to find small little amounts of fluid which were not likely to be successful by needle aspiration or incision with a scalpel. Patient was given a large amount (900 mg) of IV clindamycin while here and 600 mg additional oral clindamycin for her to take at home. Patient lives at [facility]. - Vital Signs Vital signs: Temp Pulse Resp BP Pulse Ox 98.1 F 89 16 134/78 H 100 11/22/16 16:00 11/22/16 16:00 11/22/16 16:00 11/22/16 16:00 11/22/16 16:00 Discharge - Discharge Clinical Impression: Cellulitis of face Condition: Stable Disposition: HOME, SELF-CARE Additional Instructions: CELLULITIS: You have an infection of your skin and underlying soft tissues called cellulitis. This is due to bacteria, which can enter through any break in the skin, or even through an irritated hair follicle. Untreated, cellulitis will usually worsen. Antibiotics are required. Usually, warm packs or warm soaks, and elevation of the infected area are recommended. You should start getting better within 24 to 36 hours. Most infections respond quickly to the right medication. Follow-up care is important, however, to check for abscess (boil) formation, unsuspected foreign body, or resistant infection. If you develop fever, chills, or if the area of infection is becoming rapidly more swollen or painful, call the doctor at once. ANTIBIOTIC THERAPY: You have been given an antibiotic prescription. It's important that you take all the medication, unless instructed otherwise by your physician. Failure to complete the entire course can result in relapse of your condition. Common side effects of antibiotics include nausea, intestinal cramping, or diarrhea. Women may develop vaginal yeast infections, and babies can get yeast (thrush) in the mouth following the use of antibiotics. Contact your physician if you develop significant side effects from this medication. Allergy to this antibiotic can result in hives, wheezing, faintness, or itching. If symptoms of allergy occur, stop the medication and call the doctor. CLINDAMYCIN: You have been given a prescription for the antibiotic clindamycin. It is often prescribed for infections in the mouth, such as dental infections or abscesses, and for skin infections due to MRSA. It's important that you take all the medication, unless instructed otherwise by your physician. Failure to complete the entire course can result in relapse of your condition. Common side effects of antibiotics include nausea, intestinal cramping, or diarrhea. Women may develop vaginal yeast infections, and babies can get yeast (thrush) in the mouth following the use of antibiotics. Contact your physician if you develop significant side effects from this medication. Allergy to this antibiotic can result in hives, wheezing, faintness, or itching. If symptoms of allergy occur, stop the medication and call the doctor. ORAL NARCOTIC MEDICATION: You have been given a prescription for pain control. This medication is a narcotic. It's best taken with food, as nausea can result if taken on an empty stomach. Don't operate machinery or drive within six hours of taking this medication. Do not combine this medicine with alcohol, or with any medication which can cause sedation (such as cold tablets or sleeping pills) unless you get permission from the physician. Narcotics tend to cause constipation. If possible, drink plenty of fluids and eat a diet high in fiber and fruits. Return at any time if the swelling of your face worsens. Return at any time if you have difficulty swallowing, in particular if you're not able to swallow your own saliva. Return for reevaluation if there has been no improvement in the swelling of your face by Wednesday. FOLLOW-UP CARE: If you have been referred to a physician for follow-up care, call the physician s office for an appointment as you were instructed or within the next two days. If you experience worsening or a significant change in your symptoms, notify the physician immediately or return to the Emergency Department at any time for re-evaluation. Prescriptions: Clindamycin HCl 300 mg PO QID #25 capsule Oxycodone HCl/Acetaminophen [Percocet 5-325 mg Tablet] 1 - 2 tab PO Q4H PRN #15 tablet PRN Reason: Referrals: HAYDEE MONTEIRO MD [Primary Care Provider] - Follow up as needed
[2016-11-22 17:29] VITALS: BP 134/78
== END 2016-11-22 16:00 | disposition home or self-care (01) ==
LOC: ER 09:57
DX: L03.211 Cellulitis of face (principal); L40.9 Psoriasis, unspecified; I10 Essential (primary) hypertension; J44.9 Chronic obstructive pulmonary disease, unspecified; Z88.0 Allergy status to penicillin; Z87.892 Personal history of anaphylaxis; Z88.6 Allergy status to analgesic agent; Z88.8 Allergy status to other drugs, medicaments and biological substances; Z87.891 Personal history of nicotine dependence
CPT/HCPCS: 99283; 96375; 96365; 96366; 10021; S0077; J3490 ×3; J2270; J2405

== ENCOUNTER 2019-05-28 11:14 | Emergency (ER) | payer MEDICARE, MEDICAID ==
--- NOTE | 2019-05-28 11:39 | ER Document Report ---
ED Medical Screen (RME) - General Chief Complaint: Arm Problem Stated Complaint: RIGHT ARM PAIN/POST OP Time Seen by Provider: 05/28/19 11:33 Primary Care Provider: HAYDEE MONTEIRO MD [Primary Care Provider] - Follow up as needed Information source: Patient Notes: Patient had joint replacement surgery to the right elbow on 05/24/2019. Patient complains of increased pain swelling and low-grade fever since yesterday. Patient surgeon was Dr. Tang out of [place]. I have greeted and performed a rapid initial assessment of this patient. A comprehensive ED assessment and evaluation of the patient, analysis of test results and completion of the medical decision making process will be conducted by additional ED providers. TRAVEL OUTSIDE OF THE [place] IN LAST 30 DAYS: No - Related Data Allergies/Adverse Reactions: aspirin [Aspirin] Allergy (Severe, Verified 05/28/19 11:31) Anaphylaxis celecoxib [From Celebrex] Allergy (Severe, Verified 05/28/19 11:31) Anaphylaxis Penicillins Allergy (Verified 05/28/19 11:31) Rash, Itching lorazepam [From Ativan] Adverse Reaction (Intermediate, Verified 05/28/19 11:31) Respiratory distress tiotropium bromide [From Spiriva with HandiHaler] Adverse Reaction (Verified 05/28/19 11:31) Migraine, Chest Pain Home Medications: Oxycodone Q6H, Tylenol Q6H Past Medical History - Social History Chew tobacco use (# tins/day): No Frequency of alcohol use: None Drug Abuse: None - Past Medical History Cardiac Medical History: Reports: Hx Hypercholesterolemia - hx, not a problem now-per pt, Hx Hypertension Denies: Hx Atrial Fibrillation, Hx Congestive Heart Failure, Hx Coronary Artery Disease, Hx Heart Attack, Hx Peripheral Vascular Disease, Hx Pulmonary Embolism, Hx Heart Murmur Pulmonary Medical History: Reports: Hx Asthma - Inhaler-rarely uses, Hx Bronchitis, Hx COPD, Hx Pneumonia, Hx Respiratory Failure - secondary to aspiration pneumonia Denies: Hx Sleep Apnea, Hx Tuberculosis - PPD +, has taken prophylactic med/CXR clear Neurological Medical History: Renal/ Medical History: Denies: Hx End Stage Renal Disease, Hx Kidney Stones, Hx Peritoneal Dialysis Malignancy Medical History: Denies: Hx Leukemia, Hx Lung Cancer GI Medical History: Reports: Hx Gastroesophageal Reflux Disease - not a current problem. Denies: Hx Crohn's Disease, Hx Hiatal Hernia, Hx Irritable Bowel, Hx Liver Failure, Hx Pancreatitis, Hx Ulcer Musculoskeltal Medical History: Reports Hx Arthritis, Denies Hx Fibromyalgia, Denies Hx Muscular Dystrophy, Reports Hx Musculoskeletal Deformity Skin Medical History: Reports Hx Psoriasis Psychiatric Medical History: Reports: Hx Depression Denies: Hx Bipolar Disorder, Hx Post Traumatic Stress Disorder, Hx Schizophrenia Traumatic Medical History: Denies: Hx Fractures Infectious Medical History: Denies: Hx HIV Past Surgical History: Reports: Hx Orthopedic Surgery - both knees. Denies: Hx Appendectomy, Hx Bowel Surgery, Hx Section, Hx Cholecystectomy, Hx Colostomy, Hx Coronary Artery Bypass Graft, Hx Gastric Bypass Surgery, Hx Herniorrhaphy, Hx Hysterectomy, Hx Mastectomy, Hx Pacemaker, Hx Tonsillectomy, Hx Tubal Ligation - Immunizations Hx Diphtheria, Pertussis, Tetanus Vaccination: Yes Physical Exam - Vital signs Vitals: Temp Pulse Resp BP Pulse Ox 99.3 F 93 18 115/60 96 05/28/19 11:20 05/28/19 11:20 05/28/19 11:20 05/28/19 11:20 05/28/19 11:20 - General General appearance: Alert Notes: Tenderness to right elbow, 2+ edema to right forearm and hand with mild erythema along the ulnar aspect of right forearm Course - Vital Signs Vital signs: Temp Pulse Resp BP Pulse Ox 99.3 F 93 18 115/60 96 05/28/19 11:20 05/28/19 11:20 05/28/19 11:20 05/28/19 11:20 05/28/19 11:20 Doctor's Discharge - Discharge Referrals: HAYDEE MONTEIRO MD [Primary Care Provider] - Follow up as needed
[2019-05-28 12:12] LABS: ABSOLUTE BASOPHILS # (AUTO) 0.1 10^3/uL (0.0-0.2); ABSOLUTE EOSINOPHILS # (AUTO) 0.8 10^3/uL (0.0-0.6); ABSOLUTE LYMPHOCYTES (AUTO) 1.8 10^3/uL (0.5-4.7); ABSOLUTE MONOCYTES (AUTO) 0.7 10^3/uL (0.1-1.4); ABSOLUTE NEUT (AUTO) 4.3 10^3/uL (1.7-8.2); BASOPHILS % (AUTO) 0.7 % (0-2); EOSINOPHILS % (AUTO) 10.3 % (0-6); HEMOGLOBIN 8.6 g/dL (12.0-15.5); LYMPHOCYTES % (AUTO) 23.7 % (13-45); MEAN CORPUSCULAR HEMOGLOBIN 23.1 pg (27.0-33.4); MEAN CORPUSCULAR VOLUME 72 fl (80-97); MONOCYTES % (AUTO) 8.8 % (3-13); PLATELET COUNT 685 10^3/uL (150-450); RED BLOOD COUNT 3.75 10^6/uL (3.72-5.28); RED CELL DISTRIBUTION WIDTH 20.1 % (11.5-14.0); SEGMENTED NEUTROPHILS % (AUTO) 56.5 % (42-78); TOTAL CELLS COUNTED % (AUTO) 100 %; WHITE BLOOD COUNT 7.6 10^3/uL (4.0-10.5)
[2019-05-28 12:30] LABS: ANION GAP 7 (5-19); BLOOD UREA NITROGEN 16 mg/dL (7-20); CARBON DIOXIDE 30 mmol/L (22-30); CHLORIDE 102 mmol/L (98-107); GLUCOSE 88 mg/dL (75-110); POTASSIUM 4.9 mmol/L (3.6-5.0)
--- NOTE | 2019-05-28 12:33 | RADIOLOGY REPORT (SQ) ---
EXAM DESCRIPTION: ELBOW RIGHT OVER 2 VIEWS COMPLETED DATE/TIME: 05/28/2019 12:07 pm REASON FOR STUDY: recent jt replac, elbow pain/swelling COMPARISON: None. NUMBER OF VIEWS: Four views. TECHNIQUE: AP, lateral, and both oblique radiographic images acquired of the right elbow. LIMITATIONS: None. FINDINGS: MINERALIZATION: Normal. BONES: Joint replacement. Surgical changes of the proximal radius. JOINT: Large joint effusion. SOFT TISSUES: Extensive posterior soft tissue swelling along the asad. OTHER: No other significant finding. IMPRESSION: Joint effusion. Extensive soft tissue swelling. Joint replacement. TECHNICAL DOCUMENTATION: JOB ID: [id number] [employer]- All Rights Reserved Reading location - IP/workstation name: [email or web address]
[2019-05-28] MEDS ORDERED: KETOROLAC TROMETHAMINE INJ/PF 30 MG/1 ML SDV IV ONE (14:10)
--- NOTE | 2019-05-28 14:17 | ER Document Report ---
ED Extremity Problem, Upper - General Chief Complaint: Arm Problem Stated Complaint: RIGHT ARM PAIN/POST OP Time Seen by Provider: 05/28/19 11:33 Primary Care Provider: HAYDEE MONTEIRO MD [Primary Care Provider] - Follow up as needed Notes: 63-year-old female with chronic anemia presents to the emergency department with right elbow and swelling. Patient had a right elbow replacement on 05/24/2019. Patient was told that the elbow should have some swelling inflammation secondary to surgery but she is concerned that swelling might be more than expected prompting her to seek care. Patient states that she has had increased pain and complains of a low-grade fever since yesterday. Patient's surgeon was Dr. Tang out of [place]. Patient does have range of motion to the elbow although limited. Patient has normal use of her right hand. Patient's surgeon is Dr. Tang based out of [place] TRAVEL OUTSIDE OF THE [place] IN LAST 30 DAYS: No - Related Data Allergies/Adverse Reactions: aspirin [Aspirin] Allergy (Severe, Verified 05/28/19 11:31) Anaphylaxis celecoxib [From Celebrex] Allergy (Severe, Verified 05/28/19 11:31) Anaphylaxis Penicillins Allergy (Verified 05/28/19 11:31) Rash, Itching lorazepam [From Ativan] Adverse Reaction (Intermediate, Verified 05/28/19 11:31) Respiratory distress tiotropium bromide [From Spiriva with HandiHaler] Adverse Reaction (Verified 05/28/19 11:31) Migraine, Chest Pain Home Medications: Oxycodone Q6H, Tylenol Q6H Past Medical History - General Information source: Patient - Social History Smoking Status: Never Smoker Chew tobacco use (# tins/day): No Frequency of alcohol use: None Drug Abuse: None Family History: Arthritis, CAD, CVA, Hyperlipidemia, Hypertension, Malignancy Patient has suicidal ideation: No Patient has homicidal ideation: No - Past Medical History Cardiac Medical History: Reports: Hx Hypercholesterolemia - hx, not a problem now-per pt, Hx Hypertension Denies: Hx Atrial Fibrillation, Hx Congestive Heart Failure, Hx Coronary Artery Disease, Hx Heart Attack, Hx Peripheral Vascular Disease, Hx Pulmonary Embolism, Hx Heart Murmur Pulmonary Medical History: Reports: Hx Asthma - Inhaler-rarely uses, Hx Bronchitis, Hx COPD, Hx Pneumonia, Hx Respiratory Failure - secondary to aspiration pneumonia Denies: Hx Sleep Apnea, Hx Tuberculosis - PPD +, has taken prophylactic med/CXR clear Neurological Medical History: Renal/ Medical History: Denies: Hx End Stage Renal Disease, Hx Kidney Stones, Hx Peritoneal Dialysis Malignancy Medical History: Denies: Hx Leukemia, Hx Lung Cancer GI Medical History: Reports: Hx Gastroesophageal Reflux Disease - not a current problem. Denies: Hx Crohn's Disease, Hx Hiatal Hernia, Hx Irritable Bowel, Hx Liver Failure, Hx Pancreatitis, Hx Ulcer Musculoskeletal Medical History: Reports Hx Arthritis, Denies Hx Fibromyalgia, Denies Hx Muscular Dystrophy, Reports Hx Musculoskeletal Deformity Skin Medical History: Reports Hx Psoriasis Psychiatric Medical History: Reports: Hx Depression Denies: Hx Bipolar Disorder, Hx Post Traumatic Stress Disorder, Hx Schizophrenia Traumatic Medical History: Denies: Hx Fractures Infectious Medical History: Denies: Hx HIV Past Surgical History: Reports: Hx Orthopedic Surgery - both knees. Denies: Hx Appendectomy, Hx Bowel Surgery, Hx Section, Hx Cholecystectomy, Hx Colostomy, Hx Coronary Artery Bypass Graft, Hx Gastric Bypass Surgery, Hx Herniorrhaphy, Hx Hysterectomy, Hx Mastectomy, Hx Pacemaker, Hx Tonsillectomy, Hx Tubal Ligation - Immunizations Hx Diphtheria, Pertussis, Tetanus Vaccination: Yes Hx Pneumococcal Vaccination: 12/17/14 Review of Systems - Review of Systems Constitutional: See HPI EENT: No symptoms reported Cardiovascular: No symptoms reported Respiratory: No symptoms reported Gastrointestinal: No symptoms reported Genitourinary: No symptoms reported Female Genitourinary: No symptoms reported Musculoskeletal: See HPI Skin: See HPI Hematologic/Lymphatic: No symptoms reported Neurological/Psychological: No symptoms reported Physical Exam - Vital signs Vitals: Temp Pulse Resp BP Pulse Ox 99.3 F 93 18 115/60 96 05/28/19 11:20 05/28/19 11:20 05/28/19 11:20 05/28/19 11:20 05/28/19 11:20 - Notes Notes: PHYSICAL EXAMINATION: Reviewed vital signs and charting by RN GENERAL: Alert, interacts well. No acute distress. HEAD: Normocephalic, atraumatic. EYES: Pupils equal and round. Extraocular movements intact. ENT: Oral mucosa moist, tongue midline. NECK: Full range of motion. Trachea midline. EXTREMITIES: Moves all 4 extremities spontaneously. Left elbow swelling, surgical dressing still applied, assessed the surgical incision and it was clean dry and intact. Mild tenderness to palpation. 2+ radial pulse right arm, brisk cap refill PSYCH: Normal affect, normal mood. SKIN: Warm, dry, normal turgor. No rashes or lesions noted. Course - Re-evaluation Re-evalutation: 05/28/19 14:16 Well-appearing no acute distress, vital signs within normal limits. Labs all unremarkable. Patient's hemoglobin is 8.9 consistent with previous results. The surgical site is clean dry and intact. There is edema. XR showed a joint effusion and soft tissue swelling. 05/28/19 14:[address] Pat, orthopedist on-call, who recommended that the patient follow-up with Dr. Tang earlier than her appointment on . Dr. Pat said that as long as there is not a septic picture to be worried about a septic arthritis there is no emergent situation at this time and the patient can be discharged. Patient has no leukocytosis, no fever, blood cultures are pending and her elbow does not appear to be cellulitic at this time. Patient is stable for discharge - Vital Signs Vital signs: Temp Pulse Resp BP Pulse Ox 99.3 F 93 18 115/60 96 05/28/19 11:20 05/28/19 11:20 05/28/19 11:20 05/28/19 11:20 05/28/19 11:20 - Laboratory Result Diagrams: 05/28/19 11:53 05/28/19 11:53 Laboratory results interpreted by me: 05/28/19 11:53 Hgb 8.6 L Hct 27.0 L MCV 72 L MCH 23.1 L RDW 20.1 H Plt Count 685 H Eos % (Auto) 10.3 H Absolute Eos (auto) 0.8 H Discharge - Discharge Clinical Impression: Post-operative pain Elbow swelling Qualifiers: Laterality: right Qualified Code(s): M25.421 - Effusion, right elbow Condition: Good Disposition: HOME, SELF-CARE Additional Instructions: You were seen in the emergency department this afternoon for swelling of your elbow after surgery. After speaking with the orthopedist everything is reassuring but it is important that you call Dr. Tang's office first thing on Wednesday to arrange sooner follow-up than . Please continue to elevate it and ice it as needed. Please try to keep that honeycomb dressing on until you see the doctor. If you develop high fevers, worsening swelling, inability to move your elbow at all, redness and heat at the site, purulent discharge, or any other symptoms please merely return to the emergency department for reevaluation. Referrals: HAYDEE MONTEIRO MD [Primary Care Provider] - Follow up as needed
[2019-05-28 15:10] VITALS: BP 141/63
== END 2019-05-28 15:14 | disposition home or self-care (01) ==
LOC: ER 11:14
DX: G89.18 Other acute postprocedural pain (principal); M25.421 Effusion, right elbow; M79.601 Pain in right arm; R50.9 Fever, unspecified; I10 Essential (primary) hypertension; J44.9 Chronic obstructive pulmonary disease, unspecified; Z96.621 Presence of right artificial elbow joint; Z79.891 Long term (current) use of opiate analgesic; Z79.899 Other long term (current) drug therapy; Z87.892 Personal history of anaphylaxis; Z88.8 Allergy status to other drugs, medicaments and biological substances; Z88.0 Allergy status to penicillin
CPT/HCPCS: 36415; 87040; 85025; 80048; 73080; J1885; 96374; 99283

== ENCOUNTER → 2019-12-22 | Emergency (ER) | payer MEDICARE, MEDICAID ==
[~2019-12-22] MED LIST changes: +AZTREONAM INJ 1 GM VIAL IV ONE; -BUPIVACAINE INJ/PF LIPOSOME/PF 266 MG/20 ML SDV IJ PRN; -IBUPROFEN 800 MG in NORMAL SALINE 250 ML IV PRN; -IBUPROFEN 800 MG/NS 250 ML IV PRN; -LACTATED RINGERS 1000 ML IV PRN; -LANSOPRAZOLE 15 MG TAB.RAP.DR PO PRN; -LIDOCAINE 0.5% INJ-PF (5 MG/ML) 50 ML SDV SUBCUT PRN; +NORMAL SALINE 250 ML IV PRN; +ONDANSETRON HCL INJ/PF 4 MG/2 ML SDV IV ONE; -OXYCODONE HCL SR 10 MG TABLET PO PRN; +PANTOPRAZOLE SODIUM 40 MG VIAL IV ONE; +PANTOPRAZOLE SODIUM 40 MG VIAL IV PRN; -SCOPOLAMINE HYDROBROMIDE 1.5 MG PATCH.TD72 TD PRN; -SCOPOLAMINE HYDROBROMIDE 1.5 MG PATCH.TD72 TOP PRN; -VANCOMYCIN HCL 1,000 MG in DEXTROSE 5%-WATER 250 ML IV PRN
[2019-12-22 12:12] LABS: HEMATOCRIT 18.6 % (36.0-47.0); MEAN CORPUSCULAR HEMOGLOBIN 28.4 pg (27.0-33.4); MEAN CORPUSCULAR HGB CONC 33.7 g/dL (32.0-36.0); MEAN CORPUSCULAR VOLUME 84 fl (80-97); PLATELET COUNT 431 10^3/uL (150-450); RED BLOOD COUNT 2.21 10^6/uL (3.72-5.28); RED CELL DISTRIBUTION WIDTH 21.9 % (11.5-14.0); WHITE BLOOD COUNT 12.5 10^3/uL (4.0-10.5)
[2019-12-22 12:14] LABS: HEMOGLOBIN 6.3 g/dL (12.0-15.5)
[2019-12-22 12:20] LABS: INTERNATIONAL RATION (INR) 1.11; PROTHROMBIN TIME 14.3 SEC (11.4-15.4)
[2019-12-22 12:31] LABS: ALBUMIN 2.8 g/dL (3.5-5.0); ALKALINE PHOSPHATASE 91 U/L (38-126); ASPARTATE AMINO TRANSFERASE 21 U/L (14-36); BILIRUBIN,TOTAL 0.1 mg/dL (0.2-1.3); BLOOD UREA NITROGEN 51 mg/dL (7-20); GLUCOSE 120 mg/dL (75-110); POTASSIUM 4.1 mmol/L (3.6-5.0); TOTAL PROTEIN 5.9 g/dL (6.3-8.2)
[2019-12-22 12:37] LABS: CARBON DIOXIDE 25 mmol/L (22-30); CHLORIDE 110 mmol/L (98-107)
[2019-12-22 12:38] LABS: ANION GAP 5 (5-19)
[2019-12-22 12:46] LABS: ABSOLUTE LYMPHOCYTES# (MANUAL) 2.5 10^3/uL (0.5-4.7); ABSOLUTE MONOCYTES # (MANUAL) 1.4 10^3/uL (0.1-1.4); BASOPHILS % (MANUAL) 0 % (0-2); EOSINOPHILS % (MANUAL) 1 % (0-6); HYPOCHROMASIA 1+; LYMPHOCYTES % (MANUAL) 20 % (13-45); METAMYELOCYTES % (MANUAL) 1 % (0-1); MONOCYTES % (MANUAL) 11 % (3-13); NUCLEATED RED BLOOD CELLS 2 /100 WBC (0); POLYCHROMASIA 1+; SEGMENTED NEUTROPHILS % (MAN) 67 % (42-78); TEAR DROP CELLS SLIGHT; TOTAL CELLS COUNTED 100
[2019-12-22 12:47] LABS: ANISOCYTOSIS 3+; PLATELET COMMENT ADEQUATE; TARGET CELLS SLIGHT
[2019-12-22 13:40] LABS: APPEARANCE,URINE CLEAR; BILIRUBIN,URINE NEGATIVE (NEGATIVE); COLOR,URINE YELLOW; GLUCOSE, URINE NEGATIVE (NEGATIVE); KETONES,URINE NEGATIVE (NEGATIVE); LEUKOCYTE ESTERASE,URINE NEGATIVE (NEGATIVE); NITRITE,URINE NEGATIVE (NEGATIVE); PROTEIN,URINE NEGATIVE (NEGATIVE); URINE SPECIFIC GRAVITY 1.018; UROBILINOGEN,URINE NEGATIVE mg/dL (<2.0)
--- NOTE | 2019-12-22 15:21 | RADIOLOGY REPORT (SQ) ---
EXAM DESCRIPTION: CHEST SINGLE VIEW IMAGES COMPLETED DATE/TIME: 12/22/2019 3:10 pm REASON FOR STUDY: possible sepsis COMPARISON: PA and lateral views of the chest from 10/21/2015. EXAM PARAMETERS: NUMBER OF VIEWS: One view. TECHNIQUE: An AP view of the chest was obtained. RADIATION DOSE: NA LIMITATIONS: None. FINDINGS: LUNGS AND PLEURA: Atelectatic opacities in the inferolateral aspect of the left hemithorax . There is no acute consolidation, sizeable pleural effusion or pneumothorax. MEDIASTINUM AND HILAR STRUCTURES: No mediastinal or hilar contour abnormality. HEART AND VASCULAR STRUCTURES: The cardiac silhouette and pulmonary vasculature are within normal louis its. BONES: Lytic lesion in the proximal left humerus. HARDWARE: None in the chest. OTHER: No other finding. IMPRESSION: 1. Left basilar atelectasis. 2. Lytic lesion in the proximal left humerus. TECHNICAL DOCUMENTATION: JOB ID: [id number] [employer]- All Rights Reserved Reading location - IP/workstation name: [email or web address]
--- NOTE | 2019-12-22 17:14 | ER Document Report ---
ED General - General Chief Complaint: Wound Infection Stated Complaint: DIZZINESS Time Seen by Provider: 12/22/19 14:19 Primary Care Provider: OLAYINKA RAMOS FNP-C [Primary Care Provider] - Follow up as needed Mode of Arrival: Medic Information source: Patient Notes: 64-year-old woman presents to the emergency department with a complaint of dizziness and weakness. She apparently has had a recent left elbow surgery and is concerned she may have infection in the surgical site. She complains of pain and swelling with increased warmth involving the left elbow. She denies fever, nausea vomiting or chest pain/shortness of breath. TRAVEL OUTSIDE OF THE [place] IN LAST 30 DAYS: No - Related Data Allergies/Adverse Reactions: aspirin [Aspirin] Allergy (Severe, Verified 12/22/19 19:24) Anaphylaxis celecoxib [From Celebrex] Allergy (Severe, Verified 12/22/19 19:24) Anaphylaxis Penicillins Allergy (Verified 12/22/19 19:24) Rash, Itching lorazepam [From Ativan] Adverse Reaction (Intermediate, Verified 12/22/19 19:24) Respiratory distress tiotropium bromide [From Spiriva with HandiHaler] Adverse Reaction (Verified 12/22/19 19:24) Migraine, Chest Pain Past Medical History - Social History Smoking Status: Former Smoker Chew tobacco use (# tins/day): No Frequency of alcohol use: None Drug Abuse: Marijuana Family History: Arthritis, CAD, CVA, Hyperlipidemia, Hypertension, Malignancy Patient has homicidal ideation: No - Past Medical History Cardiac Medical History: Reports: Hx Hypercholesterolemia - hx, not a problem now-per pt, Hx Hypertension Denies: Hx Atrial Fibrillation, Hx Congestive Heart Failure, Hx Coronary Artery Disease, Hx Heart Attack, Hx Peripheral Vascular Disease, Hx Pulmonary Embolism, Hx Heart Murmur Pulmonary Medical History: Reports: Hx Asthma - Inhaler-rarely uses, Hx Bronchitis, Hx COPD, Hx Pneumonia, Hx Respiratory Failure - secondary to aspiration pneumonia Denies: Hx Sleep Apnea, Hx Tuberculosis - PPD +, has taken prophylactic med/CXR clear Neurological Medical History: Renal/ Medical History: Denies: Hx End Stage Renal Disease, Hx Kidney Stones, Hx Peritoneal Dialysis Malignancy Medical History: Denies: Hx Leukemia, Hx Lung Cancer GI Medical History: Reports: Hx Gastroesophageal Reflux Disease - not a current problem. Denies: Hx Crohn's Disease, Hx Hiatal Hernia, Hx Irritable Bowel, Hx Liver Failure, Hx Pancreatitis, Hx Ulcer Musculoskeletal Medical History: Reports Hx Arthritis, Denies Hx Fibromyalgia, Denies Hx Muscular Dystrophy, Reports Hx Musculoskeletal Deformity Skin Medical History: Reports Hx Psoriasis Psychiatric Medical History: Reports: Hx Depression Denies: Hx Bipolar Disorder, Hx Post Traumatic Stress Disorder, Hx Schizophrenia Traumatic Medical History: Denies: Hx Fractures Infectious Medical History: Denies: Hx HIV Past Surgical History: Reports: Hx Orthopedic Surgery - both knees. Denies: Hx Appendectomy, Hx Bowel Surgery, Hx Section, Hx Cholecystectomy, Hx Colostomy, Hx Coronary Artery Bypass Graft, Hx Gastric Bypass Surgery, Hx Herniorrhaphy, Hx Hysterectomy, Hx Mastectomy, Hx Pacemaker, Hx Tonsillectomy, Hx Tubal Ligation - Immunizations Hx Diphtheria, Pertussis, Tetanus Vaccination: Yes Hx Pneumococcal Vaccination: 12/17/14 Review of Systems - Review of Systems Notes: Constitutional: Negative for fever. HENT: Negative for sore throat. Eyes: Negative for visual changes. Cardiovascular: Negative for chest pain. Respiratory: Negative for shortness of breath. Gastrointestinal: Negative for abdominal pain, vomiting or diarrhea. Genitourinary: Negative for dysuria. Musculoskeletal: See HPI Skin: Negative for rash. Neurological: + Dizziness, + weakness 10 point ROS negative except as marked above and in HPI. Physical Exam - Vital signs Vitals: Temp 98.2 F 12/22/19 11:29 - Notes Notes: PHYSICAL EXAMINATION: Physical Exam: General: Pale appearing 64-year-old woman no acute distress HEENT: NC/AT, pupils equal round and reactive to light, MM moist,nares clear, oropharynx clear, airway patent Neck: supple, no adenopathy, no masses. Good range of motion Lungs: clear, no wheezing, no rales no rhonchi CVS: Tachycardic rate and rhythm no murmur gallop or rub Abdomen: Soft, active, nontender, no masses, no hepatosplenomegaly Ext: Left elbow with surgical site, swelling, increased warmth and redness noted along the laceration site. No obvious drainage. Neuro: Alert and responsive, moving all 4 extremities on command, cranial nerves intact, no focal findings Skin: Intact no open lesions, no rash PSYCH: Normal mood, normal affect. Course - Re-evaluation Re-evalutation: 12/22/19 17:34 Patient was found to have a hemoglobin of 6.3/18.6, vomiting bright red blood in dark tarry stools. She admits to taking aspirin as treatment for her arm pain. Patient was started on a, tonic bolus and drip, she is transfused 2 units of packed RBCs. She has been alert and talkative throughout. Fluid resuscitation improved blood pressure 89/53 to a 110/53. I have discussed with the patient that she has a upper GI bleed and severe anemia. We are unable to manage her here at [facility], there is no GI coverage this weekend. The patient is in agreement to be transferred to [facility]. The transfer center was contacted and Dr. Benites, hospitalist at [facility] has accepted the patient in transfer. - Vital Signs Vital signs: Temp Pulse Resp BP Pulse Ox 98.3 F 103 H 18 110/55 L 100 12/22/19 19:10 12/22/19 16:40 12/22/19 19:10 12/22/19 19:10 12/22/19 19:10 - Laboratory Result Diagrams: 12/22/19 11:49 12/22/19 11:49 Laboratory results interpreted by me: 12/22/19 12/22/19 12/22/19 11:49 11:49 12:45 WBC 12.5 H RBC 2.21 L Hgb 6.3 L Hct 18.6 L RDW 21.9 H Abs Neuts (Manual) 8.5 H Chloride 110 H BUN 51 H Glucose 120 H Calcium 8.0 L Total Bilirubin 0.1 L Total Protein 5.9 L Albumin 2.8 L Urine Ascorbic Acid Crossmatch See Detail 12/22/19 12:45 WBC RBC Hgb Hct RDW Abs Neuts (Manual) Chloride BUN Glucose Calcium Total Bilirubin Total Protein Albumin Urine Ascorbic Acid 40 H Crossmatch Discharge - Discharge Clinical Impression: Upper GI bleed, Hemorrhagic shock Anemia Qualifiers: Anemia type: unspecified type Qualified Code(s): D64.9 - Anemia, unspecified Condition: Good Disposition: [facility] Referrals: OLAYINKA RAMOS FNP-C [Primary Care Provider] - Follow up as needed Doctor's Note Notes: 12/22/19 19:20 Patient is being transferred to [facility], evaluation at the time of transfer, patient is hemodynamically stable, the second unit of blood is infusing as well as Protonix. Transport team successfully moved the patient onto the stretcher without incident. Patient stable for transport.
[2019-12-22 19:24] VITALS: BP 110/55
--- NOTE | 2019-12-23 20:51 | EKG REPORT ---
SEVERITY:- NORMAL ECG - SINUS RHYTHM : Confirmed by: Sandro Gibson 23-Dec-2019 20:50:41
== END | disposition short-term general hospital (02) ==
LOC: ER 11:29
DX: K92.2 Gastrointestinal hemorrhage, unspecified (principal); R57.8 Other shock; D64.9 Anemia, unspecified; R42 Dizziness and giddiness; R53.1 Weakness; I10 Essential (primary) hypertension; M25.522 Pain in left elbow; Z98.890 Other specified postprocedural states; J44.9 Chronic obstructive pulmonary disease, unspecified; Z87.892 Personal history of anaphylaxis; Z88.8 Allergy status to other drugs, medicaments and biological substances; Z88.0 Allergy status to penicillin; Z87.891 Personal history of nicotine dependence
CPT/HCPCS: 93005; 96376; 99285; 96375; 96365; 96367; 86900; 86901; 36415; 87040; 87086; 36430; 86850; 83605; 85025; 85610; 82271; 82270; 80053; 81001; 86920; 71045; 93010; P9016; C9113; J2405; J3490